=== PATIENT | female | born 1960 | race Caucasian/White ===

== ENCOUNTER → 2017-10-03 | Outpatient (CLI) | payer OTHER ==
--- NOTE | 2017-10-03 11:35 | Diagnostic Imaging Report ---
PROCEDURE:US RETROPERITONEAL ( KIDNEY ). COMPARISON:None. INDICATIONS:Type 2 Diabetes Mellitus TECHNIQUE: Estrada-scale and color sonographic images of the bilateral kidneys and bladder where obtained in transverse and longitudinal planes. FINDINGS: RIGHT KIDNEY: 10.3 x 5.7 x 5.8 cm, cortex 1.4 cm Cysts: Mid/inferior pole 2.2 x 1.6 x 1.6 cm simple cyst. Solid masses: None Stones: * Inferior pole 0.9 x 0.6 x 1.1 cm nonobstructing stone * 1.3 x 0.4 x 1.7 cm stone in the renal pelvis causing mild pelviectasis Hydronephrosis: Mildly dilated renal pelvis. Echogenicity: Normal LEFT KIDNEY: 11.1 x 5.5 x 4.9 cm, cortex 1.7 cm Cysts: None Solid masses: None Stones: None Hydronephrosis: None Echogenicity: Normal Bladder: Unremarkable. Additional findings: Increased echogenicity of the visualized portions of the liver, reflecting steatosis. CONCLUSION: 1. Mildly dilated right renal pelvis secondary to a 1.7 cm stone. 2. Additional nonobstructing calculus in the right kidney. 3. Right renal simple cyst. Dictated by: Jose Blancas M.D. on 10/03/2017 at 11:38 Electronically approved by: Jose Blanacs M.D. on 10/03/2017 at 11:38
== END ==
LOC: US 09:54
PROVIDERS: ATTEND Internal Medicine
DX: E11.9 Type 2 diabetes mellitus without complications (principal)
CPT/HCPCS: 76770

== ENCOUNTER → 2020-04-07 | Outpatient (CLI) | payer OTHER | LOC: MAMMO 09:18 | PROVIDERS: ATTEND Internal Medicine | DX: Z12.31 Encounter for screening mammogram for malignant neoplasm of breast (principal) | CPT/HCPCS: 77067 ==